=== PATIENT | female | born 1965 | race Caucasian/White ===

== ENCOUNTER 2017-12-18 09:03 | Day surgery (SDC) | payer MEDICAID ==
[~2017-12-18 09:03] MED LIST: Sodium Chloride 0.9% 10 ML Syringe FLUSH PRN
[2017-12-18] MEDS ORDERED: Propofol 200 MG/20 ML SDV ONE (11:03)
[2017-12-18] MEDS: Lactated Ringers 1,000 ML IV SCH (11:17)
--- NOTE | 2017-12-18 11:17 | PCM.HPR ---
H & P Addendum review - H & P Addendum Review Date of Original H & P: 12/05/17 Date Reviewed: 12/18/17 (]) Time Reviewed: 11:17 Patient was Examined: No Changes
--- NOTE | 2017-12-18 11:45 | PCM.OPNOTE ---
- General Post-Op/Procedure Note Date of Surgery/Procedure: 12/18/17 Operative Procedure(s): EGD and Colonoscopy Findings: Both normal Pre Op Diagnosis: FH Colon Ca; GERD Post-Op Diagnosis: Same Anesthesia Technique: MAC Primary Surgeon: Tu Hurley Complications: None Condition: Good Free Text/Narrative:: Intake & Output 12/17/17 12/18/17 12/18/17 22:59 06:59 14:59 Intake Total 400 Balance 400
--- NOTE | 2017-12-18 15:10 | OR ---
Date of Procedure: 12/18/2017 PREOPERATIVE DIAGNOSES: 1. Gastroesophageal reflux disease. 2. Family history of colon cancer. POSTOPERATIVE DIAGNOSES: 1. Normal esophagogastroduodenoscopy. 2. Normal colonoscopy. ANESTHESIA: IV sedation. PROCEDURE IN DETAIL: The patient was brought to the procedure room where she was placed on her left side and IV sedation administered. The oral bite block was placed, and the upper endoscope was advanced into the esophagus under direct vision without difficulty. The scope was advanced to the third portion of the duodenum. Duodenum and pylorus were normal. Antrum and body of the stomach were normal. Retroflexion reveals a normal-appearing fundus. Squamocolumnar junction is normal. I do not visualize any hiatal hernia. Distal esophagus was normal, and I do not see any evidence of reflux esophagitis. Air was removed from the stomach, and the scope was withdrawn through the remaining esophagus which appears normal. The patient tolerated this portion of the procedure well. Next, colonoscopy was performed after digital rectal exam was done which was normal. Colonoscope was inserted and advanced to the level of the cecum without difficulty. Cecal position was confirmed by identifying the appendiceal lumen and the ileocecal valve. Prep was good and surfaces were well visualized. Upon withdrawing the scope, the ascending, transverse, and descending colon were normal in appearance. Sigmoid colon and rectum were normal. Retroflexion was normal. Air was removed and the scope withdrawn. The patient tolerated the procedure well and returned to Recovery in stable condition. Recommend routine colon screening again in 5 years. DEVI JACOBSON MD /[id number]
== END 2017-12-18 12:41 | disposition home or self-care (01) ==
LOC: LL.SDS 09:03
PROVIDERS: ATTEND Surgery
DX: Z12.11 Encounter for screening for malignant neoplasm of colon (principal); K21.9 Gastro-esophageal reflux disease without esophagitis; F41.9 Anxiety disorder, unspecified; J44.9 Chronic obstructive pulmonary disease, unspecified; F32.9 Major depressive disorder, single episode, unspecified; I10 Essential (primary) hypertension; Z79.899 Other long term (current) drug therapy; Z80.0 Family history of malignant neoplasm of digestive organs; Z88.2 Allergy status to sulfonamides; Z88.8 Allergy status to other drugs, medicaments and biological substances; F17.210 Nicotine dependence, cigarettes, uncomplicated
CPT/HCPCS: J7120